=== PATIENT | female | born 1995 | race Caucasian/White ===

== ENCOUNTER → 2023-11-12 17:11 | Outpatient (CLI) | payer OTHER, SELFPAY ==
[2023-11-12 17:34] LABS: Add Manual Diff / Slide Review NO; Basophils Absolute Auto 100 /uL (0-100); Basophils Percent Auto 1.2 % (0-2); Eosinophils Absolute Auto 100 /uL (0-450); Eosinophils Percent Auto 1.4 % (2-4); Hematocrit 38.5 % (36-46); Hemoglobin 13.3 g/dL (12.0-16.0); Lymphocytes Absolute Auto 2000 /uL (1100-4500); Lymphocytes Percent Auto 40.5 % (25-40); Mean Corpuscular HGB Conc 34.5 % (30-36); Mean Corpuscular Hemoglobin 32.4 PG (26-34); Mean Corpuscular Volume 93.9 fL (80-100); Monocytes Absolute Auto 400 /uL (0-900); Monocytes Percent Auto 8.7 % (3-14); Neutrophils Absolute Auto 2300 /uL (1500-7000); Neutrophils Percent Auto 48.2 % (50-75); Platelet Count 306 X10^3/uL (150-400); White Blood Cell Count 4.8 X10^3/uL (4.5-11.0)
[2023-11-12 18:04] LABS: HEMOLYSIS < 15 (0-50); Iron 86 ug/dL (37-170)
[2023-11-12 18:05] LABS: BUN Creatinine Ratio 22.2 (6-22); Blood Urea Nitrogen 18 mg/dL (7-17); Calcium 9.4 mg/dL (8.4-10.2); Carbon Dioxide 24 mmol/L (22-32); Chloride 105 mmol/L (98-107); Estimated Glomerular Filt Rate > 60 mL/min (>60); Glucose 105 mg/dL (70-100); HEMOLYSIS < 15 (0-50); Potassium 4.3 mmol/L (3.4-5.1); Sodium 139 mmol/L (137-145)
[2023-11-12 18:14] LABS: Percent Iron Saturation 27 % (15-50); Total Iron Binding Capacity 321 ug/dL (265-497); Transferrin 257 mg/dL (206-381)
[2023-11-12 18:22] LABS: Free T4, Direct Thyroxine 0.89 ng/dL (0.78-2.19)
[2023-11-12 18:41] LABS: Ferritin 53 ng/mL (6-137)
[2023-11-12 18:57] LABS: Vitamin B12 Reflex MMA if <400 308 pg/mL (239-931)
[2023-11-15 20:11] LABS: Zinc 60 ug/dL (44-115)
[2023-11-17 08:10] LABS: Methylmalonic Acid,Serum 235 nmol/L (0-378)
[2023-11-27 04:09] LABS: Vitamin C 0.6 mg/dL (0.4-2.0)
== END ==
PROVIDERS: PCP Family Medicine; Referring Provider Family Medicine; Visit Provider Family Medicine
DX: L65.9 Nonscarring hair loss, unspecified (principal); R53.82 Chronic fatigue, unspecified
CPT/HCPCS: 36415; 80048; 82180; 82306; 82607; 82728; 83540; 83550; 83921; 84439; 84443; 84590; 84630; 85025

== ENCOUNTER → 2024-04-02 13:17 | Outpatient (CLI) | payer OTHER, SELFPAY | PROVIDERS: PCP Family Medicine; Visit Provider Physician Assistant Surgical | DX: R30.0 Dysuria (principal) | CPT/HCPCS: 87077; 87086; 87186 ==